=== PATIENT | male | born 2000 | race African-American/Black ===

== ENCOUNTER 2018-05-27 09:01 | Emergency (ER) | payer MEDICAID ==
[~2018-05-27] VITALS: Ht 167.6 cm; Wt 125.0 kg
[2018-05-27 10:10] LABS: CLARITY URINE CLOUDY (CLEAR); COLOR URINE ORANGE (YELLOW); KETONES URINE 2+ (NEGATIVE); LEUKOCYTE ESTERASE URINE 2+ (NEGATIVE); NITRITE URINE POSITIVE (NEGATIVE); OCCULT BLOOD URINE TRACE (NEGATIVE); PH URINE 5.5 (4.5-8.0); PROTEIN URINE 1+ (NEGATIVE); SPECIFIC GRAVITY URINE 1.029 (1.005-1.030)
[2018-05-27] MEDS ORDERED: ACETAMINOPHEN 325MG TABLET PO ONE (10:30)
[2018-05-27] MEDS ORDERED: CEPHALEXIN 500MG CAPSULE PO ONE (10:30)
[2018-05-27 10:51] VITALS: BP 115/71
== END 2018-05-27 10:55 | disposition home or self-care (01) ==
LOC: ER 09:01
DX: N30.00 Acute cystitis without hematuria (principal)
CPT/HCPCS: 81003; 87086; 87186; 99284; Z7610